=== PATIENT | male | born 1945 | race Caucasian/White ===

== ENCOUNTER 2017-06-27 18:53 | Emergency (ER) | payer MEDICARE, OTHER ==
[2017-06-27 20:36] LABS: BASOPHIL 0.2 % (0-2); EOSINOPHIL 0.3 % (0-7); HCT 41.6 % (42.0-52.0); HGB 13.5 g/dl (13.2-18.0); LYMPHOCYTE 10.6 % (15-48); MCH 31.5 pg (25.0-31.0); MCHC 32.5 g/dL (32.0-36.0); MCV 97.2 fL (78.0-100.0); MONOCYTE 3.6 % (0-12); MPV 9.1 fL (6.0-9.5); NEUTROPHIL 85.3 % (41-80); PLT 264 K/uL (150-400); RBC 4.28 M/uL (4.70-6.00); RDW 14.4 % (11.5-14.0); WBC 9.7 K/uL (4.0-10.5)
[2017-06-27 20:39] LABS: BILIRUBIN NEGATIVE (NEGATIVE); BLOOD NEGATIVE Ery/uL (NEGATIVE); CLARITY CLEAR (CLEAR); COLOR YELLOW (YELLOW); GLUCOSE (U) TRACE mg/dL (NORMAL); KETONE (U) TRACE mg/dL (NEGATIVE); LEUKOCYTES NEGATIVE Leu/uL (NEGATIVE); NITRITE NEGATIVE (NEGATIVE); PROTEIN NEGATIVE (NEGATIVE); UROBILINOGEN 0.2 mg/dL (0.2-1.0); pH 5.5 (5.0-9.0)
[2017-06-27 20:54] LABS: LACTIC ACID 2.9 mmol/L (0.5-2.2)
[2017-06-27 20:57] LABS: ALBUMIN 4.1 g/dL (3.4-4.8); BILIRUBIN - TOTAL 0.2 mg/dL (0.1-1.0); CREATININE 0.5 mg/dL (0.7-1.2); GLOBULIN (CALCULATION) 2.9 g/dL (2.2-4.2); POTASSIUM 4.8 mmol/L (3.5-5.1)
[2017-06-27 21:01] LABS: TROPONIN T < 0.010 ng/mL
[2017-06-27 21:02] LABS: PRO-BNP 661 pg/mL (0-125)
== END 2017-06-27 22:05 | disposition home or self-care (01) ==
LOC: FER 18:53
PROVIDERS: Emergency Medicine
DX: J44.9 Chronic obstructive pulmonary disease, unspecified (principal); J32.9 Chronic sinusitis, unspecified; F17.210 Nicotine dependence, cigarettes, uncomplicated; Z79.82 Long term (current) use of aspirin; Z79.84 Long term (current) use of oral hypoglycemic drugs; Z79.899 Other long term (current) drug therapy
CPT/HCPCS: 36415; 36600; 71020; 80053; 81003; 82803; 83605; 83880; 84484; 85025; 85610; 85730; 93005; 94640; 94760; J2930